=== PATIENT | male | born 1945 | race African-American/Black ===

== ENCOUNTER → 2017-11-19 | Outpatient (CLI) | payer OTHER ==
[~2017-11-19] MED LIST: ALDACTONE50 MG PO; ALPHAGAN P10 ML OPHTHALMIC; ASPIR-TRIN325 MG PO; CARDIZEM CD 18180 M3 PO; CELECOXIB200 MG PO; COSOPT OCUMETER10 M1 OPHTHALMIC; CRESTOR10 MG PO; LANTUS SOL100 UNIT/1 SUBQ; LISINOPRIL20 MG PO; LYRICA200 MG PO; NOVOLOG100 UNIT/1 SUBQ; PROSCAR 5MG TABL5 MG PO; SYMBICORT160 MCG/4. INH; TERAZOSIN HCL10 MG PO; XALATAN2.5 ML OPHTHALMIC; ZETIA10 MG PO
== END ==
LOC: HYPER 07:11
DX: E11.622 Type 2 diabetes mellitus with other skin ulcer (principal); I87.2 Venous insufficiency (chronic) (peripheral); L97.312 Non-pressure chronic ulcer of right ankle with fat layer exposed; E11.36 Type 2 diabetes mellitus with diabetic cataract; E11.319 Type 2 diabetes mellitus with unspecified diabetic retinopathy without macular edema; E11.39 Type 2 diabetes mellitus with other diabetic ophthalmic complication; H40.9 Unspecified glaucoma; I10 Essential (primary) hypertension; E78.5 Hyperlipidemia, unspecified; F17.200 Nicotine dependence, unspecified, uncomplicated; Z72.89 Other problems related to lifestyle

== ENCOUNTER → 2017-12-03 | Outpatient (CLI) | payer OTHER | LOC: HYPER 06:59 | DX: I87.331 Chronic venous hypertension (idiopathic) with ulcer and inflammation of right lower extremity (principal); L97.811 Non-pressure chronic ulcer of other part of right lower leg limited to breakdown of skin; E11.622 Type 2 diabetes mellitus with other skin ulcer; E11.36 Type 2 diabetes mellitus with diabetic cataract; E11.39 Type 2 diabetes mellitus with other diabetic ophthalmic complication; H40.9 Unspecified glaucoma; E11.319 Type 2 diabetes mellitus with unspecified diabetic retinopathy without macular edema; E78.5 Hyperlipidemia, unspecified; F17.200 Nicotine dependence, unspecified, uncomplicated; Z98.49 Cataract extraction status, unspecified eye; Z72.89 Other problems related to lifestyle ==

== ENCOUNTER → 2017-12-17 | Outpatient (CLI) | payer OTHER | LOC: HYPER 06:45 | DX: E11.622 Type 2 diabetes mellitus with other skin ulcer (principal); L97.811 Non-pressure chronic ulcer of other part of right lower leg limited to breakdown of skin; I87.331 Chronic venous hypertension (idiopathic) with ulcer and inflammation of right lower extremity; E11.36 Type 2 diabetes mellitus with diabetic cataract; E11.39 Type 2 diabetes mellitus with other diabetic ophthalmic complication; E11.319 Type 2 diabetes mellitus with unspecified diabetic retinopathy without macular edema; H40.89 Other specified glaucoma; E78.5 Hyperlipidemia, unspecified; F17.200 Nicotine dependence, unspecified, uncomplicated; Z72.89 Other problems related to lifestyle ==

== ENCOUNTER → 2017-12-31 | Outpatient (CLI) | payer OTHER | LOC: HYPER 06:53 | DX: I87.331 Chronic venous hypertension (idiopathic) with ulcer and inflammation of right lower extremity (principal); E11.622 Type 2 diabetes mellitus with other skin ulcer; L97.811 Non-pressure chronic ulcer of other part of right lower leg limited to breakdown of skin; E11.36 Type 2 diabetes mellitus with diabetic cataract; E11.319 Type 2 diabetes mellitus with unspecified diabetic retinopathy without macular edema; E78.5 Hyperlipidemia, unspecified; F17.200 Nicotine dependence, unspecified, uncomplicated; Z72.89 Other problems related to lifestyle ==